=== PATIENT | female | born 1950 | race Caucasian/White ===

== ENCOUNTER → 2017-08-29 | Outpatient (CLI) | payer BC, OTHER ==
[2014-11-08 04:15] VITALS: BP 148/69
[~2017-08-29] MED LIST: ALBU8.5H6 IH; ASPI-630 PO; ESTR1TAB7 PO; LEVO25TA4 PO; LOSA1TAB25 PO; OMEG300C PO; OMEP20TA63 PO; UBID30CA9 PO; VITA1TAB54 PO; [UNRECOGNIZED DRUG - CODE] PO
--- NOTE | 2017-08-29 12:49 | RAD ---
DATE: 08/29/2017 EXAM: MAMMO MALDONADO SCREENING BILATERAL HISTORY: Routine screening COMPARISON: . Study from 2014 This study was interpreted with the benefit of Computerized Aided Detection (CAD). FINDINGS: Breast Density: SCATTERED The breast parenchyma shows scattered fibroglandular densities. Breast parenchyma level B. The skin and nipples are within normal limits. Benign appearing right breast calcifications. There is a new 6 mm oval-shaped nodule in the posterior upper outer left breast with well-circumscribed margins approximately 15 samples from the nipple. No suspicious calcifications, spiculated masses or areas of architectural distortion. IMPRESSION: Left upper outer quadrant oval-shaped nodule most likely an intraparenchymal lymph node or simple cyst. However, since this is new from previous study from 2014, ultrasound is recommended. BI-RADS CATEGORY: 0 INCOMPLETE: NEED ADDITIONAL IMAGING EVAULATION AND/OR PRIOR MAMMOGRAMS FOR COMPARISON RECOMMENDED FOLLOW-UP: ADD ADDITIONAL IMAGING. Ultrasound of the left posterior upper outer quadrant of the breast. PQRS compliance statement: Patient information was entered into a reminder system with a target due date for the next mammogram. Mammography is a sensitive method for finding small breast cancers, but it does not detect them all and is not a substitute for careful clinical examination. A negative mammogram does not negate a clinically suspicious finding and should not result in delay in biopsying a clinically suspicious abnormality. "Our facility is accredited by the [employer] Mammography Program."
== END | disposition home or self-care (01) ==
LOC: MAMMO 10:53
PROVIDERS: ATTEND Physician Assistant Medical
DX: Z12.31 Encounter for screening mammogram for malignant neoplasm of breast (principal)
CPT/HCPCS: 77063; G0202; 77067

== ENCOUNTER → 2017-09-15 | Outpatient (CLI) | payer OTHER ==
[2014-11-08 04:15] VITALS: BP 148/69
--- NOTE | 2017-09-15 08:47 | RAD ---
Ultrasound of the left breast 09/15/2017 Clinical history: New nodule seen in the upper outer quadrant of the left breast on recent screening mammogram. Technique: A real-time ultrasound examination of the upper outer quadrant of the left breast was performed. Multiple images were obtained. Findings: Comparison is made to the patient's mammogram dated 08/29/2017. Within the upper outer quadrant of the left breast at the 1:00 position two intramammary lymph nodes are seen which measure 1 and 1.2 cm in size. One of these corresponds to the nodule seen on the patient's mammogram. No additional abnormality is seen within the visualized portions of the left breast. Impression: Two lymph nodes are seen within the left breast, at the 1:00 position which correspond to the patient's mammographic abnormality. I would recharacterize the patient's mammograms as a BI-RADS Category 2 benign findings with a recommendation for routine yearly screening mammography for follow-up. Patient information was entered into the reminder system with target date for the patient's next screening mammogram of 08/29/2018. BI-RADS Category 2: Benign. Mammography is the most sensitive method for finding small breast cancers, but it does not detect them all and is not a substitute for careful clinical examination. A negative mammogram does not negate a clinically suspicious finding and should not result in delay in biopsying a clinically suspicious abnormality. "Our facility is accredited by the [employer] Mammography [employer]."
== END | disposition home or self-care (01) ==
LOC: US 07:49
PROVIDERS: ATTEND Physician Assistant Medical
DX: R92.8 Other abnormal and inconclusive findings on diagnostic imaging of breast (principal)
CPT/HCPCS: 76641

== ENCOUNTER 2018-02-06 12:39 | Emergency (ER) | payer OTHER ==
[~2018-02-06] VITALS: Ht 157.5 cm; Wt 77.1 kg
--- NOTE | 2018-02-06 13:26 | PHYS DOC ---
Past History Past Medical History: Asthma, Hypertension, Hypothyroid Past Surgical History: Hysterectomy, Tonsillectomy, Other Alcohol Use: Occasionally Drug Use: None Adult General Chief Complaint Chief Complaint: FINGER INJURY HPI HPI 67-year-old female presents with foreign body in her posterior, distal, right index finger. The patient was getting something out of the refrigerator when she slid her finger across a metal trim piece on the refrigerator and it stabbed into her fingernail and broke off from the refrigerator. She continues to have a small metal shard of roughly 0.5 cm x 0.5 cm sticking out of her finger. She was concerned about pulling it out herself so she came to the ED. He denies any other injuries. Her tetanus is not up-to-date, however she had a severe reaction to a tetanus booster 10 years ago. She denies fever, chills,, dizziness, nausea, vomiting, headache. Review of Systems Review of Systems Constitutional: Denies fever or chills [] Eyes: Denies change in visual acuity, redness, or eye pain [] HENT: Denies nasal congestion or sore throat [] Respiratory: Denies cough or shortness of breath [] Cardiovascular: No additional information not addressed in HPI [] GI: Denies abdominal pain, nausea, vomiting, bloody stools or diarrhea [] : Denies dysuria or hematuria [] Musculoskeletal: Denies back pain or joint pain [] Integument: Denies rash or skin lesions [] Neurologic: Denies headache, focal weakness or sensory changes [] Endocrine: Denies polyuria or polydipsia [] All other systems were reviewed and found to be within normal limits, except as documented in this note. Allergies Allergies Allergies Coded Allergies Type Severity Reaction Last Updated Verified Penicillins Allergy Unknown 02/06/18 Yes Tetanus Vaccines and Toxoid Allergy Unknown 02/06/18 Yes latex Allergy Unknown 02/06/18 Yes lidocaine Allergy Unknown 02/06/18 Yes Physical Exam Physical Exam Constitutional: Well developed, well nourished, no acute distress, non-toxic appearance. [] HENT: Normocephalic, atraumatic, bilateral external ears normal, oropharynx moist, no oral exudates, nose normal. [] Eyes: PERRLA, EOMI, conjunctiva normal, no discharge. [] Neck: Normal range of motion, no tenderness, supple, no stridor. [] Cardiovascular:Heart rate regular rhythm, no murmur [] Lungs & Thorax: Bilateral breath sounds clear to auscultation [] Abdomen: Bowel sounds normal, soft, no tenderness, no masses, no pulsatile masses. [] Skin: Warm, dry, no erythema, no rash. [] Back: No tenderness, no CVA tenderness. [] Extremities: No tenderness, no cyanosis, no clubbing, ROM intact, no edema. Small, 0.5 cm x 0.3 cm metal fragment protruding from the dorsal aspect of the 1st digit on the right hand[] Neurologic: Alert and oriented X 3, normal motor function, normal sensory function, no focal deficits noted. [] Psychologic: Affect normal, judgement normal, mood normal. [] Current Patient Data Vital Signs Vital Signs Date Time Temp Pulse Resp B/P (MAP) Pulse Ox O2 Delivery O2 Flow Rate FiO2 02/06/18 12:49 98.2 86 16 99 Room Air EKG EKG [] Radiology/Procedures Radiology/Procedures EXAM: Right index finger, 3 views. HISTORY: Foreign body. COMPARISON: None. FINDINGS: Frontal, lateral and oblique views of the right index finger are obtained. There is moderate first carpometacarpal joint space narrowing with subchondral sclerosis and marginal spurring. There is no fracture, dislocation or subluxation. No radiodense foreign body is seen. IMPRESSION: 1. Moderate first carpometacarpal osteoarthritis. 2. No acute osseous finding or radiodense foreign body. Electronically signed by: Tiffanie Major MD (02/06/2018 2:06 PM) [id number][] Course & Med Decision Making Course & Med Decision Making Pertinent Labs and Imaging studies reviewed. (See chart for details) I was able to mainly remove the metal shard from the patient's finger. An x-ray of the hand was performed to make sure there was not a fragment. X-ray was negative for radiopaque foreign body. Patient's pain was much improved. Her bleeding was controlled. The patient's wound was covered with a clean dressing. She will follow up with her PCP for follow up evaluation as needed. [] Dragon Disclaimer Dragon Disclaimer This electronic medical record was generated, in whole or in part, using a voice recognition dictation system. Departure Departure: Referrals: JOON,REBEL M PA (PCP) ROE DUVALL DO February 06, 2018 13:26
--- NOTE | 2018-02-06 14:09 | RAD ---
EXAM: Right index finger, 3 views. HISTORY: Foreign body. COMPARISON: None. FINDINGS: Frontal, lateral and oblique views of the right index finger are obtained. There is moderate first carpometacarpal joint space narrowing with subchondral sclerosis and marginal spurring. There is no fracture, dislocation or subluxation. No radiodense foreign body is seen. IMPRESSION: 1. Moderate first carpometacarpal osteoarthritis. 2. No acute osseous finding or radiodense foreign body. Electronically signed by: Tiffanie Major MD (02/06/2018 2:06 PM) [id number]
[2018-02-06 14:26] VITALS: BP 149/88
== END 2018-02-06 14:27 | disposition home or self-care (01) ==
LOC: ER 12:39
DX: S60.450A Superficial foreign body of right index finger, initial encounter (principal); J45.909 Unspecified asthma, uncomplicated; I10 Essential (primary) hypertension; E03.9 Hypothyroidism, unspecified; Z88.0 Allergy status to penicillin; Z88.7 Allergy status to serum and vaccine; Z88.4 Allergy status to anesthetic agent; Z91.040 Latex allergy status; W22.8XXA Striking against or struck by other objects, initial encounter; Y93.89 Activity, other specified; Y99.8 Other external cause status; Y92.89 Other specified places as the place of occurrence of the external cause
CPT/HCPCS: 73140; 99284

== ENCOUNTER → 2018-05-22 | Outpatient (CLI) | payer OTHER ==
--- NOTE | 2018-05-22 11:24 | RAD ---
EXAM: CT Abdomen and Pelvis without IV contrast CLINICAL HISTORY: LLQ PAIN. COMPARISON: none TECHNIQUE: Helical CT of the abdomen and pelvis without intravenous contrast. Oral contrast was administered. Coronal and sagittal reformatted images were generated. PQRS compliance statement - One or more of the following individualized dose reduction techniques were utilized for this study: 1. Automated exposure control 2. Adjustment of the mA and/or kV according to patient size 3. Use of iterative reconstruction technique FINDINGS: Lack of intravenous contrast limits evaluation of solid organs, vasculature, and lymph nodes. Lower chest: Minimal lingular and medial right lung base opacities likely atelectasis/scarring. Abdomen and Pelvis: No focal liver lesion. Gallbladder is normal. No biliary ductal dilatation. Spleen is unremarkable. Pancreas is normal. Adrenal glands are unremarkable. No focal renal lesion. No hydronephrosis. Kidneys are normal in size and shape. No definite renal calculus is seen. Colonic diverticulosis without evidence of acute diverticulitis. Appendix is normal. No evidence for bowel obstruction. No abdominal or pelvic lymphadenopathy by size criteria. No abdominal or pelvic ascites. Small fat-containing periumbilical hernia is seen without associated fatty inflammatory change or fluid. Mild thickening of the bladder wall likely from underdistended state. This can be correlated with cystitis. Uterus is not seen, likely prior hysterectomy. Multilevel degenerative changes of the spine are seen. Bones: No definite aggressive osseous lesion is identified. IMPRESSION: 1. Thickening of the bladder possibly from underdistended state however may also be seen with cystitis. This can be correlated with urinalysis. 2. Colonic diverticulosis without evidence for acute diverticulitis. 3. Fat-containing ventral abdominal hernia without associated inflammatory change. Electronically signed by: Sarkis Bruce MD (05/22/2018 11:21 AM) [id number]
== END | disposition home or self-care (01) ==
LOC: CT 08:32
PROVIDERS: ATTEND Physician Assistant Medical
DX: K57.30 Diverticulosis of large intestine without perforation or abscess without bleeding (principal); K45.8 Other specified abdominal hernia without obstruction or gangrene; I10 Essential (primary) hypertension; E03.9 Hypothyroidism, unspecified; J45.909 Unspecified asthma, uncomplicated; Z88.7 Allergy status to serum and vaccine; Z88.0 Allergy status to penicillin; Z88.4 Allergy status to anesthetic agent
CPT/HCPCS: 74150

== ENCOUNTER → 2018-09-04 | Outpatient (CLI) | payer OTHER ==
--- NOTE | 2018-09-04 16:49 | RAD ---
Bone densitometry scan, 09/04/2018: HISTORY: Ovarian failure The lumbar spine and right hip were examined utilizing a DEXA technique. The bone mineral density in the lumbar spine as measured from the L1-L4 levels is 1.07 g/sq cm. This yields a T score of -0.9 which is in the normal range. The total T score at the right hip is -0.8 which is also in the normal range. IMPRESSION: Normal bone mineral density measurements. Electronically signed by: Jatin Vasquez MD (09/04/2018 4:45 PM) [facility]
--- NOTE | 2018-09-07 15:23 | RAD ---
DATE: September 04, 2018 EXAM: MAMMO MALDONADO SCREENING BILATERAL HISTORY: Screening study. COMPARISON: 2014 and 2016 This study was interpreted with the benefit of Computerized Aided Detection (CAD). 2-D digital mammographic views of both breasts were performed in the CC and MLO projections. 3-D digital tomosynthesis images of both breasts were performed in the CC and MLO projections and reviewed on a computer workstation. FINDINGS: Breast Density: SCATTERED The breast parenchyma shows scattered fibroglandular densities. Breast parenchyma level B.. There are no dominant suspicious masses, suspicious microcalcifications or evidence of architectural distortion. Calcified fibroadenoma of the 12:00 position of the right breast is stable. IMPRESSION: No mammographic indicators for malignancy. BI-RADS CATEGORY: 2 BENIGN FINDING RECOMMENDED FOLLOW-UP: 12M 12 MONTH FOLLOW-UP PQRS compliance statement: Patient information was entered into a reminder system with a target due date September 05, 2019 for the next mammogram. Mammography is a sensitive method for finding small breast cancers, but it does not detect them all and is not a substitute for careful clinical examination. A negative mammogram does not negate a clinically suspicious finding and should not result in delay in biopsying a clinically suspicious abnormality. "Our facility is accredited by the [employer] Mammography Program." The patient's breast density may affect the ability of mammography to detect breast cancer. There are 4 categories of breast density, A, B, C and D. Breast density A means that most of the breast tissue is replaced with adipose tissue and therefore is not dense. Breast density B means that the breast tissue is mildly dense and scattered. Breast density C means that the breast tissue is heterogeneously dense. Breast density D means that the breast tissue is very dense. Breast densities especially C and D may decrease the sensitivity of mammography to detect breast cancer. Therefore, the patient may benefit from 3-D breast mammography (3D breast tomography) as a part of their screening mammogram. Insurance may or may not pay for this additional imaging. The patient's breast density based on today's mammogram is category B.
== END | disposition home or self-care (01) ==
LOC: MAMMO 09:18
PROVIDERS: ATTEND Physician Assistant Medical
DX: Z12.31 Encounter for screening mammogram for malignant neoplasm of breast (principal); Z13.820 Encounter for screening for osteoporosis
CPT/HCPCS: 77063; 77067; 77080

== ENCOUNTER → 2020-02-24 | Outpatient (CLI) | payer MEDICARE ==
--- NOTE | 2020-02-24 11:45 | CARD ---
MR#: [id number] Date of Study: 02/24/2020 Ordering Physician: EMERSON HILL, Referring Physician: EMERSON HILL, Tech: Lara Dacosta PONCHO APPROVED REPORT EXAM: Two-dimensional and M-mode echocardiogram with Doppler and color Doppler. Other Information Quality : Good INDICATION Hypertension/HCVD 2D DIMENSIONS RVDd2.8 (2.9-3.5cm)Left Atrium(2D)3.6 (1.6-4.0cm) IVSd0.7 (0.7-1.1cm)Aortic Root(2D)3.1 (2.0-3.7cm) LVDd4.5 (3.9-5.9cm)LVOT Diameter2.0 (1.8-2.4cm) PWd0.7 (0.7-1.1cm)LVDs2.6 (2.5-4.0cm) FS (%) 30.0 %SV65.6 ml LVEF(%)60.0 (>50%) Aortic Valve AoV Peak Barney.114.3cm/sAoV VTI23.7cm AO Peak GR.5.2mmHgLVOT Peak Barney.116.9cm/s LVOT VTI 23.97cmAO Mean GR.3mmHg PIYUSH (VMAX)3.81ed3OHO (VTI)3.09cm2 Mitral Valve MV E Xdohmedq573.1cm/sMV DECEL [id number] MV A Kjnijlck36.5cm/sE/A Ratio1.4 Tricuspid Valve TR P. Cyyhrgca304mx/sRAP [id number] TR Peak Gr.54tyJaMAYA51saJz Pulmonary Vein S1 Bpdbeksm17.4cm/sD2 Vndksymf91.2cm/s LEFT VENTRICLE The left ventricle is normal size. There is normal left ventricular wall thickness. The left ventricu lar systolic function is normal. The ejection fraction is 60%. There is normal LV segmental wall augustin on. RIGHT VENTRICLE The right ventricle is normal size. The right ventricular systolic function is normal. ATRIA The left atrium size is normal. The right atrium size is normal. The interatrial septum is intact wit h no evidence for an atrial septal defect or patent foramen ovale as noted on 2-D or Doppler imaging. AORTIC VALVE The aortic valve is normal in structure and function. Doppler and Color Flow revealed no significant aortic regurgitation. There is no significant aortic valvular stenosis. MITRAL VALVE The mitral valve is normal in structure and function. There is no evidence of mitral valve prolapse. There is no mitral valve stenosis. Doppler and Color Flow revealed no mitral valve regurgitation note d. TRICUSPID VALVE The tricuspid valve is normal in structure and function. Doppler and Color Flow revealed trace tricus pid regurgitation. The PA pressure was estimated at 24 mmHg. There is no tricuspid valve stenosis. PULMONIC VALVE The pulmonary valve is normal in structure and function. Doppler and Color Flow revealed trace pulmon ic valvular regurgitation. There is no pulmonic valvular stenosis. GREAT VESSELS The aortic root is normal in size. The ascending aorta is mildly dilated at 3.4 cm. The IVC is normal in size and collapses >50% with inspiration. PERICARDIAL EFFUSION There is no evidence of significant pericardial effusion. Critical Notification Critical Value: No <Conclusion> The left ventricular systolic function is normal. The ejection fraction is 60%. There is normal LV segmental wall motion. Trace tricuspid regurgitation. The PA pressure was estimated at 24 mmHg. There is no evidence of significant pericardial effusion. Signed by : Vinicio Pickens, Electronically Approved : 02/24/2020 11:44:30
== END ==
LOC: ECHO 10:49
PROVIDERS: ATTEND Internal Medicine Cardiovascular Disease
DX: I10 Essential (primary) hypertension (principal)
CPT/HCPCS: 93306

== ENCOUNTER → 2020-10-30 | Outpatient (CLI) | payer MEDICARE ==
--- NOTE | 2020-10-31 15:23 | RAD ---
DATE: 10/30/2020 10:30 AM EXAM: DIGITAL SCREEN BILAT W/CAD HISTORY: Screening COMPARISON: 09/04/2018 Bilateral CC and MLO views of the breasts were performed. Bilateral breast tomosynthesis was performed in CC and MLO projections. This study was interpreted with the benefit of Computerized Aided Detection (CAD). FINDINGS: Breast Density: FATTY The Breast Parenchyma is primarily fatty replaced. Breast parenchyma level density A. No suspicious masses, microcalcifications or architectural distortion is present to suggest malignancy in either breast. The visualized axillae are unremarkable. IMPRESSION: No mammographic evidence of malignancy. BI-RADS CATEGORY: 1 NEGATIVE RECOMMENDED FOLLOW-UP: 12M 12 MONTH FOLLOW-UP Annual screening mammography is recommended, unless clinically indicated sooner based on symptoms or change in physical exam. PQRS compliance statement: Patient information was entered into a reminder system with a target due date for the next mammogram. Mammography is a sensitive method for finding small breast cancers, but it does not detect them all and is not a substitute for careful clinical examination. A negative mammogram does not negate a clinically suspicious finding and should not result in delay in biopsying a clinically suspicious abnormality. "Our facility is accredited by the [employer] Mammography Program."
== END ==
LOC: MAMMO 10:37
PROVIDERS: ATTEND Physician Assistant Medical
DX: Z12.31 Encounter for screening mammogram for malignant neoplasm of breast (principal)
CPT/HCPCS: 77067

== ENCOUNTER → 2021-03-08 | Outpatient (CLI) | payer MEDICARE ==
--- NOTE | 2021-03-08 14:57 | RAD ---
EXAM: Bilateral knees, standing view; left knee, 2 views. HISTORY: Pain. COMPARISON: None. FINDINGS: A standing view both knees and 2 views left knee are obtained. There is bilateral medial co mpartment joint space narrowing, subchondral sclerosis and spurring. There is mild bilateral lateral and left patellofemoral compartment spurring. There is a trace left knee effusion. There is no fractu re, dislocation or subluxation. IMPRESSION: 1. 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 2. Trace left knee effusion. Electronically signed by: Tiffanie Major MD (03/08/2021 2:54 PM) [id number]
== END ==
LOC: RAD 14:31
PROVIDERS: ATTEND Physician Assistant
DX: M17.0 Bilateral primary osteoarthritis of knee (principal)
CPT/HCPCS: 73560; 73565

== ENCOUNTER → 2021-05-14 | Outpatient (CLI) | payer MEDICARE ==
--- NOTE | 2021-05-14 12:38 | RAD ---
Examination: CT of the abdomen pelvis without contrast HISTORY: History of left flank pain COMPARISON: 05/22/2018 TECHNIQUE: Axial CT images of the abdomen pelvis with contrast. Coronal and sagittal reformats are pe rformed Exposure: One or more of the following individualized dose reduction techniques were utilized for thi s examination: 1. Automated exposure control 2. Adjustment of the mA and/or kV according to patient size 3. Use of iterative reconstruction technique FINDINGS: The bibasilar lungs are clear. No evidence of free air identified in the abdomen. The evaluation of the solid organs is limited due to lack of IV contrast. The evaluation of bowel is limited due to lack of oral contrast. The visualized noncontrasted liver, spleen, adrenals grossly ap pears unremarkable. The gallbladder is mildly distended. The stomach is mildly distended with visuali zed pancreas grossly appears unremarkable. Small bowel is nondilated. Feces and gas noted in the colo n. Multiple colon diverticulosis. The urinary bladder is mildly distended. No evidence of intrarenal collecting system calculi or hydronephrosis. There is a fat-containing umbi lical hernia identified measuring 3.2 cm. Moderate degenerative changes lumbar spine. Lower lumbar hardware identified. Mild anterolisthesis of L4 on L5. IMPRESSION: 1. No evidence of intrarenal collecting system calculi or hydronephrosis. 2. Multiple colon diverticulosis. 3. 3.2 cm fat-containing umbilical hernia, unchanged. Electronically signed by: Leonard Orourke MD (05/14/2021 12:35 PM) [id number]
== END ==
LOC: CT 11:48
PROVIDERS: ATTEND Physician Assistant Medical
DX: K57.30 Diverticulosis of large intestine without perforation or abscess without bleeding (principal); K42.9 Umbilical hernia without obstruction or gangrene; M47.816 Spondylosis without myelopathy or radiculopathy, lumbar region; M43.16 Spondylolisthesis, lumbar region; R10.30 Lower abdominal pain, unspecified
CPT/HCPCS: 74176